=== PATIENT | female | born 1980 | race Caucasian/White ===

== ENCOUNTER 2017-12-31 02:58 | Emergency (ER) | payer OTHER ==
[2017-12-31] MEDS ORDERED: HYDROCODONE/ACETAMINOPHEN 5-325 MG (6 TAB/ER DISP) PO PRN (04:44)
--- NOTE | 2017-12-31 04:47 | ER Document Report ---
HPI - HPI Patient complains to provider of: Neck pain Pain Level: 4 Context: Patient is a 37-year-old female who comes emergency department for chief complaint of waking up this morning with a very tight neck and sharp pain in her neck and shoulder areas when she tries to move or especially move her head to the side. She denies injury, history of the same although she does state that she has a history of herniated disc in her neck. She denies any daily medications. She denies fever, IV drug abuse, numbness, headache. She denies any other symptoms. LMP within the past month. - CONSTITUTIONAL Constitutional: DENIES: Fever, Chills - EENT EENT: DENIES: Sore Throat, Ear Pain, Eye problems - NEURO Neurology: DENIES: Headache, Weakness, Vision blurred, Dizzinesss / Vertigo - CARDIOVASCULAR Cardiovascular: DENIES: Chest pain - RESPIRATORY Respiratory: DENIES: Trouble Breathing, Coughing - GASTROINTESTINAL Gastrointestinal: DENIES: Abdominal Pain, Black / Bloody Stools - URINARY Urinary: DENIES: Dysuria, Urgency, Frequency - MUSCULOSKELETAL Musculoskeletal: DENIES: Extremity pain Past Medical History - General Information source: Patient - Social History Smoking Status: Never Smoker Drug Abuse: None Lives with: Family Family History: Reviewed & Not Pertinent Patient has suicidal ideation: No Patient has homicidal ideation: No Renal/ Medical History: Denies: Hx Peritoneal Dialysis Musculoskeltal Medical History: Reports Hx Musculoskeletal Deformity Surgical Hx: Negative - Immunizations Immunizations up to date: Yes Hx Diphtheria, Pertussis, Tetanus Vaccination: Yes Vertical Provider Document - CONSTITUTIONAL General Appearance: Thin, Other - Patient moves stiffly, keeping her neck straight, pivots, appears to be mildly uncomfortable - INFECTION CONTROL TRAVEL OUTSIDE OF THE [place] IN LAST 30 DAYS: No - HEENT HEENT: Atraumatic, Normal ENT Exam, Normocephalic - NECK Neck: Other - Very tender over the right trapezius and paracervical muscles with rigid muscle fibers, limited range of motion laterally, no nuchal rigidity , no midline tenderness - RESPIRATORY Respiratory: Breath Sounds Normal, No Respiratory Distress - CARDIOVASCULAR Cardiovascular: Regular Rate, Regular Rhythm - GI/ABDOMEN Gastrointestinal: Abdomen Soft, Abdomen Non-Tender - BACK Back: Normal Inspection - MUSCULOSKELETAL/EXTREMETIES Musculoskeletal/Extremeties: MAEW, FROM, Non-Tender - NEURO Level of Consciousness: Awake, Alert, Appropriate - DERM Integumentary: Warm, Dry, No Rash Course - Re-evaluation Re-evalutation: Patient appears to have a painful very easily palpated muscle spasm. No nuchal rigidity, signs of infection, neurologic deficits. Patient states she is herniated disc in the past, after discussion decision was made to place her on prednisone in addition to medications for muscle relaxant. Discussed recommendations, follow-up, and return precautions. Patient states understanding and agreement. - Vital Signs Vital signs: Temp Pulse Resp BP Pulse Ox 97.9 F 81 16 114/83 97 12/31/17 03:38 12/31/17 03:38 12/31/17 03:38 12/31/17 03:38 12/31/17 03:38 Discharge - Discharge Clinical Impression: Neck pain Condition: Stable Disposition: HOME, SELF-CARE Additional Instructions: Your examination shows muscular spasm of the trapezius muscle. Take medications as prescribed, stay hydrated, apply heat to the area, do gentle range of motion stretches, avoid lifting and twisting until symptoms resolve. Follow up with primary care. Return if you develop any concerning symptoms including severe headache, vomiting, numbness, fever, or any other concerning symptoms. Prescriptions: Diazepam [Valium 5 mg Tablet] 1 - 2 tab PO TID PRN #12 tablet PRN Reason: Prednisone [Deltasone 10 mg Tablet] 10 mg PO ASDIR PRN #21 tablet PRN Reason: Referrals: LOCALMD,NO [Primary Care Provider] - Follow up as needed
[2017-12-31 05:27] VITALS: BP 120/76
== END 2017-12-31 05:02 | disposition home or self-care (01) ==
LOC: ER 02:58
DX: M54.2 Cervicalgia (principal); M62.838 Other muscle spasm; M25.511 Pain in right shoulder; M25.512 Pain in left shoulder
CPT/HCPCS: 99283

== ENCOUNTER 2018-08-15 15:19 | Emergency (ER) | payer OTHER ==
[2018-08-15 15:46] VITALS: BP 118/82
--- NOTE | 2018-08-15 16:24 | ER Document Report ---
HPI - HPI Time Seen by Provider: 08/15/18 15:55 Pain Level: 3 Notes: Patient is an otherwise healthy 30-year-old female who presents the emergency department with a injury to her nose. Patient reports this morning she was working on a car when she struck herself in the face with a plastic object. She states she is pretty sure her nose is broken. She states she went to work but was advised by the nurse at her work to come to the ER. Patient does report some pain to the area but states that it is tolerable. - REPRODUCTIVE Reproductive: DENIES: : Past Medical History - General Information source: Patient - Social History Smoking Status: Never Smoker Drug Abuse: None Lives with: Alone Family History: Reviewed & Not Pertinent - Medical History Medical History: Negative Renal/ Medical History: Denies: Hx Peritoneal Dialysis Musculoskeletal Medical History: Reports Hx Musculoskeletal Deformity Surgical Hx: Negative - Immunizations Immunizations up to date: Yes Hx Diphtheria, Pertussis, Tetanus Vaccination: Yes Vertical Provider Document - CONSTITUTIONAL Notes: PHYSICAL EXAMINATION: GENERAL: Well-appearing, well-nourished and in no acute distress. HEAD: Atraumatic, normocephalic. EYES: Pupils equal round extraocular movements intact, conjunctiva are normal. ENT: Nares patent with no evidence of septal hematoma. Swelling and mild ecchymosis noted across the bridge of the nose. NECK: Normal range of motion LUNGS: No respiratory distress Musculoskeletal: Normal range of motion NEUROLOGICAL: Normal speech, normal gait. PSYCH: Normal mood, normal affect. SKIN: Warm, Dry, normal turgor, no rashes or lesions noted. - INFECTION CONTROL TRAVEL OUTSIDE OF THE [place] IN LAST 30 DAYS: No Course - Re-evaluation Re-evalutation: Patient is declining any imaging unless I am going to be able to repair any fractures to her nose. I discussed with patient that even if there is a fracture that needs repair it is typically not repaired until the swelling has receded. Patient reports she already has an appointment with ENT and that she will will see them next week. - Vital Signs Vital signs: Temp Pulse Resp BP Pulse Ox 98.1 F 75 16 118/82 100 08/15/18 15:44 08/15/18 15:44 08/15/18 15:44 08/15/18 15:44 08/15/18 15:44 Discharge - Discharge Clinical Impression: Injury of nose Qualifiers: Encounter type: initial encounter Qualified Code(s): S09.92XA - Unspecified injury of nose, initial encounter Condition: Stable Disposition: HOME, SELF-CARE Additional Instructions: You are seen today for injury to your nose. Based upon assessment, it is likely that your nose is fractured. You have opted to not have any x-rays or CTs done today. Please keep the appointment that you set up with [facility] for next week. Apply ice to the area 20 minutes on 20 minutes off, take ibuprofen or Tylenol for pain and inflammation. Return to the emergency department with any worsening symptoms. Forms: Return to Work Referrals: SUMIT DHALIWAL, [ASSOCIATE] - Follow up as needed
== END 2018-08-15 16:40 | disposition home or self-care (01) ==
LOC: ER 15:19
DX: S09.92XA Unspecified injury of nose, initial encounter (principal); W22.8XXA Striking against or struck by other objects, initial encounter
CPT/HCPCS: 99283

== ENCOUNTER 2018-08-23 07:15 | Day surgery (SDC) | payer OTHER ==
[~2018-08-23 07:15] MED LIST: ACETAMINOPHEN 1,000 MG/100 ML RTUPB IV ONE; DEXAMETHASONE SOD PHOSPHATE INJ 4 MG/1 ML VIAL ONE; FENTANYL CITRATE INJ/PF 100 MCG/2 ML AMPUL ONE; LACTATED RINGERS 1000 ML IV PRN; LIDOCAINE 0.5% INJ-PF (5 MG/ML) 50 ML SDV SUBCUT PRN; LIDOCAINE 2% INJ-PF (20 MG/ML) 10 ML AMPUL ONE; MIDAZOLAM 2 MG/2 ML INJ ONE; ONDANSETRON HCL INJ/PF 4 MG/2 ML SDV ONE; PROPOFOL INJ 200 MG/20 ML VIAL IV ONE
[2018-08-23] MEDS ORDERED: CEFAZOLIN 2 GM/D5W RTU 2 GM/50 ML RTUPB IV ONE (07:27)
[2018-08-23] MEDS ORDERED: BUPIVACAINE HCL 0.5%/EPI 1:200000 INJ 1.8 ML CARTRIDGE ONE (08:03)
[2018-08-23] MEDS ORDERED: OXYMETAZOLINE HCL 0.05% NASAL SPRAY 15 ML BOTTLE ONE (08:03)
[2018-08-23] MEDS ORDERED: FAMOTIDINE INJ/PF 20 MG/2 ML SDV IV ONE (08:13)
[2018-08-23] MEDS ORDERED: MIDAZOLAM 2 MG/2 ML INJ ONE ×2 (08:13→11:50)
[2018-08-23] MEDS ORDERED: SCOPOLAMINE HYDROBROMIDE 1.5 MG PATCH.TD72 ONE (08:13)
[2018-08-23] MEDS ORDERED: DEXAMETHASONE SOD PHOSPHATE INJ 4 MG/1 ML VIAL ONE (08:13)
[2018-08-23] MEDS ORDERED: RINGERS SOLUTION,LACTATED 1,000 ML IV PRN ×2 (08:20→12:08)
[2018-08-23] MEDS ORDERED: RINGERS SOLUTION,LACTATED 500 ML IV ONE (08:30)
[2018-08-23] MEDS ORDERED: MEPERIDINE HCL/PF INJ 25 MG/1 ML DISP.SYRIN IV PRN (11:40)
[2018-08-23] MEDS ORDERED: MORPHINE SULFATE 10 MG/ML INJ IV PRN ×2 (11:40→12:08)
[2018-08-23] MEDS ORDERED: FENTANYL CITRATE INJ/PF 100 MCG/2 ML AMPUL IV PRN ×3 (11:40)
[2018-08-23] MEDS ORDERED: DIPHENHYDRAMINE HCL 50 MG/ML VIAL IV PRN (11:40)
[2018-08-23] MEDS ORDERED: PROMETHAZINE HCL INJ 25 MG/1 ML VIAL IV PRN ×3 (11:40→12:08)
[2018-08-23] MEDS ORDERED: HYDROCODONE/ACETAMINOPHEN 5-325 MG TABLET PO PRN (12:08)
[2018-08-23] MEDS ORDERED: ONDANSETRON HCL INJ/PF 4 MG/2 ML SDV IV PRN (12:08)
[2018-08-23 14:10] VITALS: BP 112/78
--- NOTE | 2018-08-24 14:17 | OPERATIVE REPORT E ---
Operative Report NAME: FRANDY ROSA : 1980 AGE: 38Y DATE OF SURGERY: ROOM: PREOPERATIVE DIAGNOSES: 1. Nasal fractures, acquired. 2. Nasal deformity, acquired. 3. Nasal pain. POSTOPERATIVE DIAGNOSES: 1. Nasal fractures, acquired. 2. Nasal deformity, acquired. 3. Nasal pain. OPERATION PERFORMED: Closed reduction of nasal fractures. SURGEON: SUMIT DHALIWAL D.O. ANESTHETIC: IV conscious sedation. ANESTHESIA STAFF: DANIEL Hurtado ESTIMATED BLOOD LOSS: 1 mL. FLUIDS: 300 mL. COMPLICATIONS: None. DRAINS: None. SPONGE COUNT: Not applicable. MATERIALS FORWARDED SPECIMEN: None. FINDINGS: 1. There were nasal deformities, acquired, with nasal dorsal and left nasal dorsal/nasal sidewall irregularities and fullness with bony and cartilaginous deformities and bony step-off deformity. 2. The patient was with nasal tip deformity and inadequate support that was preexisting. 3. The patient was also with dorsal cartilaginous deformity/fullness that was preexisting. INDICATIONS: This is a 38-year-old white female who was seen and evaluated in the [place] otolaryngology office. The patient had been referred for and she complained of within the last week suffering nasal trauma whereby she was struck with an elbow to her face/nose. The injury was reported as being isolated to the nasal area. The patient denied any difficulty with her vision or double vision. The patient denied any other facial pain or difficulty. The patient reported that her teeth fit together in a normal manner and was unconcerned. The patient notes nasal deformities since the incident with nasal dorsal, left nasal sidewall fullness and irregularities. After extensive discussion with the patient she desired correction of these deformities. A closed reduction of nasal fractures procedure was discussed at length with the patient in the clinic setting versus the operative setting. The patient did not feel she could undergo this type of procedure in the office setting and she asked for this to be performed in the operative/OR setting. The procedure and all of its risks and complications were all discussed in detail with the patient. She voiced an understanding of the described surgical pain, agreed to proceed. Consent was obtained. PROCEDURE: The patient was taken to the main operating room and was placed on the operating room table in the supine position. Using oxygen by mouth and IV access, IV conscious sedation was established. At this point the patient underwent a nasal examination with injection of local anesthetic with epinephrine to establish a nasal block. Next, with use of instrumentation a closed reduction of the nasal fractures was performed with reasonable contour and symmetry being achieved. At this point the patient had Mastisol and Steri-Strips placed over the nose. The nosed was cleaned and dried and she was returned to the anesthesia staff and was allowed to emerge from IV conscious sedation. The patient was then transported to the postanesthesia recovery unit in stable condition. There were no complications. DICTATING PHYSICIAN: SUMIT DHALIWAL D.O. [id number] PHY#: [id number] ID: [id number] JOB#: [id number] ACCT: [id number] cc:SUMIT DHALIWAL D.O. >
== END 2018-08-23 13:36 | disposition home or self-care (01) ==
LOC: OROUT 07:15
PROVIDERS: ATTEND Otolaryngology
DX: S02.2XXA Fracture of nasal bones, initial encounter for closed fracture (principal); W50.0XXA Accidental hit or strike by another person, initial encounter; M95.0 Acquired deformity of nose; J34.89 Other specified disorders of nose and nasal sinuses; J34.2 Deviated nasal septum; R06.09 Other forms of dyspnea; J30.9 Allergic rhinitis, unspecified; Z79.899 Other long term (current) drug therapy; Z79.3 Long term (current) use of hormonal contraceptives
CPT/HCPCS: 81025; 21315; J2250; J3490 ×3; J1100; J3010; J2405; J2704; S0028; J0690; J0131; 160